=== PATIENT | female | born 1995 | race African-American/Black ===

== ENCOUNTER 2020-05-24 09:12 | Outpatient (CLI) | payer OTHER ==
[2020-05-24 09:53] LABS: PLATELET COUNT 268 K/uL (152-353)
[2020-05-24 10:21] LABS: POTASSIUM 3.6 mmol/L (3.6-5.2)
== END 2020-05-24 21:44 | disposition home or self-care (01) ==
LOC: LABW 09:12
PROVIDERS: ATTEND Dermatology Procedural Dermatology
DX: Z79.899 Other long term (current) drug therapy (principal)
CPT/HCPCS: 36415; 80053; 84439; 84443; 84481; 85027

== ENCOUNTER 2020-10-30 13:48 | Emergency (ER) | payer OTHER ==
[~2020-10-30] VITALS: Ht 154.9 cm; Wt 68.9 kg
[2020-10-30 13:55] VITALS: TEMP 99.4
[2020-10-30 16:15] VITALS: BP 112/82
== END 2020-10-30 16:16 | disposition home or self-care (01) ==
LOC: ED 13:48
DX: S00.03XA Contusion of scalp, initial encounter (principal); S80.12XA Contusion of left lower leg, initial encounter; S80.02XA Contusion of left knee, initial encounter; V43.52XA Car driver injured in collision with other type car in traffic accident, initial encounter; Y93.89 Activity, other specified; Y92.89 Other specified places as the place of occurrence of the external cause
CPT/HCPCS: 81025; 99283

== ENCOUNTER 2021-06-28 04:06 | Emergency (ER) | payer OTHER ==
[~2021-06-28] VITALS: Ht 154.9 cm; Wt 70.8 kg
[2021-06-28 05:25] VITALS: BP 103/73; TEMP 98.3
== END 2021-06-28 05:25 | disposition home or self-care (01) ==
LOC: ED 04:06
DX: R07.89 Other chest pain (principal); M94.0 Chondrocostal junction syndrome [Tietze]
CPT/HCPCS: 93005; 96372; 99283; J1885

== ENCOUNTER 2021-11-06 11:51 | Emergency (ER) | payer OTHER ==
[~2021-11-06] VITALS: Ht 154.9 cm; Wt 74.8 kg
[2021-11-06 11:58] VITALS: TEMP 98.3
[2021-11-06 12:23] VITALS: BP 122/78
== END 2021-11-06 12:24 | disposition home or self-care (01) ==
LOC: ED 11:51
DX: H60.8X2 Other otitis externa, left ear (principal)
CPT/HCPCS: 99283